=== PATIENT | female | born 1945 | race Caucasian/White ===

== ENCOUNTER 2021-04-08 12:34 | Emergency (ER) | payer MEDICARE ==
[~2021-04-08 12:34] MED LIST: DULOXETINE HCL30 MG PO; DULOXETINE HCL60 MG PO; HABITROL 14 MG P1 EA TD; LEVAQUIN TAB 5500 MG PO; LORTAB 7.5-3251 EACH PO; LYRICA100 MG PO; NORVASC 5 MG TAB5 MG PO; PRAVASTATIN SOD20 MG PO; SALSALATE750 MG PO; TRAMADOL HCL50 MG PO; VITAMIN B-121000 MC3 PO; ZANAFLEX4 MG PO
[2021-04-08 14:48] LABS: HEMOGLOBIN 13.3 gm/dl (12.3-15.3); RED BLOOD COUNT 4.53 M/UL (4.00-5.10); WHITE BLOOD COUNT 7.5 K/UL (4.5-11.0)
[2021-04-08 15:15] LABS: BUN/CREATININE RATIO 14 (0-10)
== END 2021-04-08 18:20 | disposition home or self-care (01) ==
LOC: ER1 12:34
PROVIDERS: Physician Assistant Medical
DX: S80.212A Abrasion, left knee, initial encounter (principal); R53.1 Weakness; E78.5 Hyperlipidemia, unspecified; I10 Essential (primary) hypertension; F17.210 Nicotine dependence, cigarettes, uncomplicated; Z90.710 Acquired absence of both cervix and uterus; Z90.49 Acquired absence of other specified parts of digestive tract; Z88.2 Allergy status to sulfonamides; W22.8XXA Striking against or struck by other objects, initial encounter
CPT/HCPCS: 70450; 73552; 73564; 73590; 73600; 73630; 80053; 85025; 93971; 99285